=== PATIENT | female | born 1990 | race Two or more races ===

== ENCOUNTER 2018-02-10 12:44 | Inpatient (IN) | payer OTHER ==
[~2018-02-10] VITALS: Ht 149.9 cm; Wt 68.9 kg
[2018-03-05] MEDS ORDERED: PRENATAL TABLE1 EAC1 PO (22:09)
== END 2018-03-08 11:47 | disposition home or self-care (01) | DRG 775 ==
LOC: LDR 03-05 22:08 → OB/GYN 03-06 05:35
PROC: 4A1HXCZ Monitoring of Products of Conception, Cardiac Rate, External Approach (ICD-10-PCS; 2018-03-05)
PROC: 10E0XZZ Delivery of Products of Conception, External Approach (ICD-10-PCS; principal; 2018-03-06)
PROC: 4A033R1 Measurement of Arterial Saturation, Peripheral, Percutaneous Approach (ICD-10-PCS; 2018-03-06)
DX: O80 Encounter for full-term uncomplicated delivery (principal); Z3A.39 39 weeks gestation of pregnancy; Z37.0 Single live birth

== ENCOUNTER 2020-11-13 06:00 | Day surgery (SDC) | payer OTHER ==
[~2020-11-13 06:00] MED LIST: PRENATAL TABLE1 EAC1 PO
== END 2020-11-13 10:25 | disposition home or self-care (01) ==
LOC: CIR.AMB 06:00
PROVIDERS: ATTEND Obstetrics & Gynecology
DX: Z30.2 Encounter for sterilization (principal); Z20.822 Contact with and (suspected) exposure to COVID-19